=== PATIENT | female | born 1980 | race Caucasian/White ===

== ENCOUNTER → 2016-10-27 | Outpatient (REF) ==
[~2016-10-27] MED LIST: ASPIR-LOW81 MG PO; EXPECTA PO; FOLIC ACID PO; NO HOME MEDICATIONS; PRENATAL VITAMI1 TA5 PO; VICODIN 5/5001 UDTAB PO
== END ==
LOC: WSOH 08:37
DX: Z02.89 Encounter for other administrative examinations (principal)

== ENCOUNTER → 2016-11-23 | Outpatient (REF) | LOC: WSOH 15:13 | DX: Z23 Encounter for immunization (principal) ==

== ENCOUNTER → 2016-11-30 | Outpatient (CLI) | payer BC | LOC: COL.RAD 08:00 | DX: S69.91XA Unspecified injury of right wrist, hand and finger(s), initial encounter (principal); M21.941 Unspecified acquired deformity of hand, right hand; M79.641 Pain in right hand ==